=== PATIENT | male | born 1980 | race Caucasian/White ===

== ENCOUNTER 2016-07-17 11:26 | Emergency (ER) | payer OTHER ==
[~2016-07-17] VITALS: Wt 80.0 kg
[2016-07-17] MEDS ORDERED: FAMOTIDINE 20 MG TAB PO STA (12:20)
[2016-07-17] MEDS ORDERED: LIDOCAINE/MYLANTA 40 ML BTL PO STA (12:20)
[2016-07-17 12:56] LABS: BASOPHILS % 0.4 % (0.0-2.0); EOSINOPHILS # 0.2 10^3/ul (0.0-0.5); HEMOGLOBIN 15.4 g/dl (14.0-18.0); LYMPHOCYTES # 2.5 10^3/ul (0.8-2.9); LYMPHOCYTES % 26.6 % (15.0-51.0); MEAN CORPUSCULAR HEMOGLOBIN 24.8 pg (29.0-33.0); MEAN CORPUSCULAR HGB CONC 32.7 g/dl (32.0-37.0); MEAN CORPUSCULAR VOLUME 75.8 fl (82.0-101.0); MEAN PLATELET VOLUME 9.6 fl (7.4-10.4); MONOCYTE # 0.9 10^3/ul (0.3-0.9); NEUTROPHIL # 5.9 10^3/ul (1.6-7.5); PLATELET COUNT 222 10^3/UL (140-440); RED CELL DISTRIBUTION WIDTH 14.5 % (11.5-14.5); UNCORRECTED WBC 9.5 10^3/ul (4.8-10.8); WHITE BLOOD COUNT 9.5 10^3/ul (4.8-10.8)
--- NOTE | 2016-07-17 12:59 | RADRPT ---
PROCEDURE: US Abdomen (right upper quadrant). CLINICAL INDICATION: Abdominal pain TECHNIQUE: Multiple real-time longitudinal and transverse images of the right upper quadrant of th e abdomen were acquired utilizing a curved array transducer. Images were reviewed on a high-resoluti on PACS workstation. COMPARISON: None FINDINGS: The liver is enlarged (19.3 cm) and fatty infiltrated, without focal mass. Normal hepatopedal flow is present within the main portal vein. The gallbladder is normal. There is no pericholecystic flu id or gallbladder wall thickening or gallstones. No intrahepatic biliary dilatation is seen. The hill creas, abdominal aorta and common bile duct are obscured by bowel gas. No free fluid is identified. The right kidney measures 10.5 cm in length. No renal mass, calculus, hydronephrosis or perinephric fluid collection is identified. IMPRESSION: 1. Hepatic steatosis and mild hepatomegaly are noted. 2. No cholelithiasis or cholecystitis is seen. RPTAT: QQ .Landry Quezada MD, MD Date Time Electronically viewed and signed by .Landry Quezada MD, MD on 07/17/2016 12:59 .R/
[2016-07-17 13:03] LABS: CONDITION 1; LH ANALYZER COMMENTS 1
[2016-07-17 13:07] LABS: ALBUMIN 4.2 g/dl (3.3-4.9)
[2016-07-17 13:10] LABS: BILIRUBIN,INDIRECT 0.4 mg/dl (0-1.1); BILIRUBIN,TOTAL 0.4 mg/dl (0.2-1.3); CREATININE 0.97 mg/dl (0.61-1.24)
[2016-07-17 13:11] LABS: ALBUMIN/GLOBULIN RATIO 1.35; CALCIUM 9.4 mg/dl (8.4-10.2); TOTAL PROTEIN 7.3 g/dl (6.1-8.1)
--- NOTE | 2016-07-17 14:05 | RADRPT ---
PROCEDURE: XR Chest. CLINICAL INDICATION: chest pain, abdominal pain TECHNIQUE: Single frontal view of the chest was obtained COMPARISON: None FINDINGS: The heart and mediastinum are within normal limits. The lungs are clear. There is no pleural effusion or pneumothorax. RPTAT: AA IMPRESSION: No acute disease. .Tomas Aguayo MD, MD Date Time Electronically viewed and signed by .Tomas Aguayo MD, on 07/17/2016 14:04 .S/
[2016-07-17] MEDS ORDERED: ACET1TAB40 PO (14:16)
[2016-07-17] MEDS ORDERED: PANT40TA3 PO (14:16)
--- NOTE | 2016-07-17 14:19 | ERD ---
ER Documentation Chief Complaint Date/Time DATE: 07/17/16 TIME: 14:17 Chief Complaint ABDOMINAL PAIN SINCE THIS MORNING. NO N/V/D. HPI This 36-year-old male complains of epigastric abdominal pain for the last day. Denies any fevers, vomiting or nausea. Is not associated with food. It appears crampy without radiation. He denies diarrhea or urinary complaints. Denies any previous history of abdominal problems or gallstones ROS All systems reviewed and are negative except as per history of present illness. Medications Home Meds Active Scripts Acetaminophen with Codeine (Acetaminophen-Cod #3 Tablet) 1 Each Tablet, 1 TAB PO Q6H Y for PAIN, #10 TAB Prov:MERLINE ROGERS MD 07/17/16 Pantoprazole* (Protonix*) 40 Mg Tablet.dr, 40 MG PO DAILY, #20 TAB Prov:MERLINE ROGERS MD 07/17/16 Allergies Allergies: Coded Allergies: No Known Allergy (Unverified , 07/17/16) PMhx/Soc History of Surgery: No Anesthesia Reaction: No Hx Neurological Disorder: No Hx Respiratory Disorders: No Hx Cardiac Disorders: No Hx Psychiatric Problems: No Hx Miscellaneous Medical Probl: No Hx Alcohol Use: No Hx Substance Use: No Hx Tobacco Use: No Physical Exam Vitals Vital Signs Date Time Temp Pulse Resp B/P Pulse Ox O2 Delivery O2 Flow Rate FiO2 07/17/16 11:39 98.8 92 20 126/95 98 Physical Exam Const: [] Alert, [id number]. Head: Atraumatic Eyes: Normal Conjunctiva ENT: Normal External Ears, Nose and Mouth. Neck: Full range of motion..~ No meningismus. Resp: Clear to auscultation bilaterally Cardio: Regular rate and rhythm, no murmurs Abd: Soft, mild epigastric tenderness. No exquisite Blandon sign and no tenderness at McBurney's point and no rebound per, non distended. Normal bowel sounds Skin: No petechiae or rashes Back: No midline or flank tenderness Ext: No cyanosis, or edema Neur: Awake and alert Psych: Normal Mood and Affect Result Diagram: 07/17/16 1230 07/17/16 1230 Results 24 hrs Laboratory Tests Test 07/17/16 12:30 Alanine Aminotransferase (ALT/SGPT) 56IU/L Albumin 4.2g/dl Albumin/Globulin Ratio 1.35 Alkaline Phosphatase 63IU/L Anion Gap 19 Aspartate Amino Transf (AST/SGOT) 37IU/L Basophils # 0.010^3/ul Basophils % 0.4% Blood Morphology Comment Blood Urea Nitrogen 14mg/dl Calcium Level 9.4mg/dl Carbon Dioxide Level 25mmol/L Chloride Level 103mmol/L Creatinine 0.97mg/dl Direct Bilirubin 0.00mg/dl Eosinophils # 0.210^3/ul Eosinophils % 2.0% Globulin 3.10g/dl Glucose Level 115mg/dl Hematocrit 47.0% Hemoglobin 15.4g/dl Indirect Bilirubin 0.4mg/dl Lipase 187U/L Lymphocytes # 2.510^3/ul Lymphocytes % 26.6% Mean Corpuscular Hemoglobin 24.8pg Mean Corpuscular Hemoglobin Concent 32.7g/dl Mean Corpuscular Volume 75.8fl Mean Platelet Volume 9.6fl Monocytes # 0.910^3/ul Monocytes % 9.0% Neutrophils # 5.910^3/ul Neutrophils % 62.0% Nucleated Red Blood Cells # 0.010^3/ul Nucleated Red Blood Cells % 0.0/100WBC Platelet Count 41757^3/UL Potassium Level 4.0mmol/L Red Blood Count 6.2010^6/ul Red Cell Distribution Width 14.5% Sodium Level 143mmol/L Total Bilirubin 0.4mg/dl Total Protein 7.3g/dl White Blood Count 9.510^3/ul Current Medications Medications (Trade) Dose Ordered Sig/Eulogio Route PRN Reason Start Time Stop Time Status Last Admin Dose Admin Famotidine (Pepcid) 20 mg ONCE STAT PO 07/17/16 12:20 07/17/16 12:22 DC 07/17/16 13:07 Miscellaneous Medication (Gi Cocktail (2)) 40 ml ONCE STAT PO 07/17/16 12:20 07/17/16 12:22 DC 07/17/16 13:08 Procedures/MDM Patient presents with epigastric pain of uncertain etiology. Is given Pepcid p.o. as well as GI cocktail. Right upper quadrant ultrasound shows fatty liver without gallstones or acute abnormalities. CBC, CMP and lipase are normal. Chest X-ray 1V Interpreted by me: Soft Tissue: No acute abnormalities Bones: No acute abnormalities Mediastinum/Cardiac Silhouette/Lungs: [No acute abnormalities]. Impression- normal 1 view chest x-ray Patient was stable throughout the course with minimal epigastric tenderness. Patient has epigastric pain of uncertain etiology. There is no evidence of hepatobiliary disease, signs or symptoms are not consistent with appendicitis, acute abdomen, obstruction, PE, pneumonia, acute coronary syndrome. Patient was treated with Protonix, Tylenol 3 and instructions to follow-up with primary doctor possibly GI for further evaluation. He should otherwise return for worsening pain, fevers, blood, new or worsening symptoms as directed after instructions Departure Diagnosis: Primary Impression: Abdominal pain Abdominal location: epigastric Qualified Code: R10.13 - Epigastric pain Condition: Stable Patient Instructions: Abdominal Pain, Gastritis (Adult) Additional Instructions: All exams normal today. May be gastritis and we will treat for this. Recheck for new or worsening symptoms or primary care doctor for further evaluation and treatment. MERLINE ROGERS MD Jul 17, 2016 14:19
== END 2016-07-17 14:29 | disposition home or self-care (01) ==
LOC: FTE 11:26
DX: R10.13 Epigastric pain (principal)
CPT/HCPCS: 36415; 71010; 76705; 80053; 83690; 85025; Z7502; Z7610

== ENCOUNTER 2016-08-07 16:49 | Emergency (ER) | payer OTHER ==
[~2016-08-07] VITALS: Wt 98.9 kg
[~2016-08-07 16:49] MED LIST: ACET1TAB40 PO; PANT40TA3 PO
[2016-08-07] MEDS ORDERED: PHEN177S43 MT (17:44)
[2016-08-07] MEDS ORDERED: GUAI120S26 PO (17:44)
[2016-08-07] MEDS ORDERED: IBUP-1542 PO (17:44)
--- NOTE | 2016-08-07 18:01 | ERD ---
ER Documentation Chief Complaint Date/Time DATE: 08/07/16 TIME: 17:59 Chief Complaint SORE THROAT FEVER AND COUGH FOR THE PAST 2 DAYS. WITH COLE. NO NEURO DEF HPI 36-year-old male with no significant past medical history presents to the ED complaining of sore throat, fever, dry cough, frontal headache for the last 2 days. States that the headache is nonradiating. States that he has been taking ibuprofen with relief of his pain. Patient states that his sons are also sick with similar symptoms. Denies any chest pain, shortness of breath, wheezing, abdominal pain, nausea, vomiting, neck stiffness, neck pain. ROS All systems reviewed and are negative except as per history of present illness. Medications Home Meds Active Scripts Ibuprofen* (Motrin*) 600 Mg Tab, 600 MG PO Q6, #30 TAB Prov:GREYSON WYATT PA-C 08/07/16 Phenol* (Chloraseptic* [place]) 177 Ml [place].pump, 2 SPRAY MT Q2H Y for SORE THROAT, #1 BOTTLE Prov:GREYSON WYATT PA-C 08/07/16 Ngrytfqtaew-Z-Bwgznbbaol Hb* (Guaifenesin* DM Syrup) 120 Ml Syrup, 10 ML PO Q4H Y for COUGH, #120 ML Prov:GREYSON WYATT PA-C 08/07/16 Acetaminophen with Codeine (Acetaminophen-Cod #3 Tablet) 1 Each Tablet, 1 TAB PO Q6H Y for PAIN, #10 TAB Prov:MERLINE ROGERS MD 07/17/16 Pantoprazole* (Protonix*) 40 Mg Tablet.dr, 40 MG PO DAILY, #20 TAB Prov:MERLINE ROGERS MD 07/17/16 Allergies Allergies: Coded Allergies: No Known Allergy (Unverified , 07/17/16) PMhx/Soc History of Surgery: No Anesthesia Reaction: No Hx Neurological Disorder: No Hx Respiratory Disorders: No Hx Cardiac Disorders: No Hx Psychiatric Problems: No Hx Miscellaneous Medical Probl: No Hx Alcohol Use: No Hx Substance Use: No Hx Tobacco Use: No Physical Exam Vitals Vital Signs Date Time Temp Pulse Resp B/P Pulse Ox O2 Delivery O2 Flow Rate FiO2 08/07/16 17:15 99.9 115 22 120/59 97 Physical Exam Const: Xxj-bdi-nykthaqus, well-nourished. In no acute distress. Head: Atraumatic, normocephalic Eyes: Normal Conjunctiva without injection. No purulent discharge. PERRLA. EOMI ENT: Normal external ear. Ear canal without erythema. Tympanic membrane pearly alejandre without effusion or bulging. Nasal canal clear with normal turbinates. Moist oropharynx without tonsillar exudates. Non-erythematous pharynx. Uvula midline. No drooling. No trismus. Neck: No cervical midline tenderness. Full range of motion. No meningismus. No cervical lymphadenopathy. No JVD. Resp: Clear to auscultation bilaterally. No wheezing, rhonchi, rales, or crackles. No accessory muscle use. No retractions. Cardio: Regular rate and rhythm. No murmurs, rubs or gallops. Abd: Soft, non tender, non distended. Normal bowel sounds. No palpable masses. No rebound tenderness. No guarding. Negative McBurney's Point. Negative Blandon's Sign. Skin: Normal skin turgor. No petechiae or rashes Back: No midline tenderness. No CVA tenderness. Ext: No cyanosis, or edema. Distal pulses intact bilaterally. Neur: Awake and alert. Normal gait. Normal coordination. Cranial Nerves II- VII intact. Normal finger to nose. Muscle strength 5/5. Sensation intact. Psych: Normal Mood and Affect Procedures/MDM This is a 36-year-old male with no significant past medical history presents to the ED complaining of headache, fever, cough, sore throat. Patient is afebrile and nontoxic-appearing. This patient presents to the ED with symptoms consistent with a viral acute upper respiratory infection. Patient is afebrile and has normal vital signs. Patient's physical exam include lungs which were clear to auscultation and a normal pulse oximetry. There is a low suspicion for pneumonia, pneumothorax, pulmonary embolism, epiglottitis, otitis media, otitis externa, viral/strep pharyngitis, sinusitis, peritonsillar abscess, mastoiditis, retropharyngeal abscess, meningitis, sepsis, acute abdomen or other emergent conditions. Fluids , rest, and symptomatic treatment are recommended for the management of patient' s symptoms. Discharge medications: Ibuprofen, Chloraseptic spray, Guaifenesin Patient was instructed to return to the ED for any new or worsening symptoms. They should otherwise follow up with the primary care provider within 1-2 days. The patient's questions were answered at the time of discharge. Patient understood and agreed with discharge management. Departure Diagnosis: Primary Impression: URI (upper respiratory infection) URI type: unspecified URI Qualified Code: J06.9 - Upper respiratory tract infection, unspecified type Condition: Stable Patient Instructions: Uri, Viral, No Abx (Adult) Referrals: [facility] YOU HAVE RECEIVED A MEDICAL SCREENING EXAM AND THE RESULTS INDICATE THAT YOU DO NOT HAVE A CONDITION THAT REQUIRES URGENT TREATMENT IN THE EMERGENCY DEPARTMENT. FURTHER EVALUATION AND TREATMENT OF YOUR CONDITION CAN WAIT UNTIL YOU ARE SEEN IN YOUR DOCTORS OFFICE WITHIN THE NEXT 1-2 DAYS. IT IS YOUR RESPONSIBILITY TO MAKE AN APPOINTMENT FOR FOLOW-UP CARE. IF YOU HAVE A PRIMARY DOCTOR --you should call your primary doctor and schedule an appointment IF YOU DO NOT HAVE A PRIMARY DOCTOR YOU CAN CALL OUR PHYSICIAN REFERRAL HOTLINE AT IF YOU CAN NOT AFFORD TO SEE A PHYSICIAN YOU CAN CHOSE FROM THE FOLLOWING [facility] [address] [facility]. [facility] [address] [facility] [facility] [address] [facility] [facility] [address] [facility] [facility] [address] [facility] [facility]. [address] [facility]. [facility] YOU HAVE RECEIVED A MEDICAL SCREENING EXAM AND THE RESULTS INDICATE THAT YOU DO NOT HAVE A CONDITION THAT REQUIRES URGENT TREATMENT IN THE EMERGENCY DEPARTMENT. FURTHER EVALUATION AND TREATMENT OF YOUR CONDITION CAN WAIT UNTIL YOU ARE SEEN IN YOUR DOCTORS OFFICE WITHIN THE NEXT 1-2 DAYS. IT IS YOUR RESPONSIBILITY TO MAKE AN APPOINTMENT FOR FOLOW-UP CARE. IF YOU HAVE A PRIMARY DOCTOR --you should call your primary doctor and schedule and appointment IF YOU DO NOT HAVE A PRIMARY DOCTOR YOU CAN CALL OUR PHYSICIAN REFERRAL HOTLINE AT . IF YOU CAN NOT AFFORD TO SEE A PHYSICIAN YOU CAN CHOSE FROM THE FOLLOWING [facility]: [facility] [address] [place] [address] [facility] [address] [place] [address] [facility] [address] [place] [address] [facility] URGENT CARE/SPECIALTIES Additional Instructions: Visite a [facility] yulissa kothari para un EXAMEN.Regrese a estas instalaciones si no se mejora megha esperbamos o megha le dijimos. GREYSON WYATT PA-C Aug 07, 2016 18:01
== END 2016-08-07 17:45 | disposition home or self-care (01) ==
LOC: E/R 16:49
DX: J06.9 Acute upper respiratory infection, unspecified (principal)
CPT/HCPCS: 99283

== ENCOUNTER 2016-08-20 05:25 | Emergency (ER) | payer OTHER ==
[~2016-08-20] VITALS: Ht 172.7 cm; Wt 96.0 kg
[~2016-08-20 05:25] MED LIST changes: +GUAI120S26 PO; +IBUP-1542 PO; +PHEN177S43 MT
[2016-08-20 05:26] VITALS: Ht 172.7 cm; Wt 96.0 kg
[2016-08-20] MEDS ORDERED: AMO500 PO (06:19)
[2016-08-20] MEDS ORDERED: IBUP-1542 PO (06:20)
--- NOTE | 2016-08-20 06:25 | ERD ---
ER Documentation Chief Complaint Date/Time DATE: 08/20/16 TIME: 06:22 Chief Complaint RT EAR PAIN SINCE 2 AM HPI Patient is a 36-year-old male who presents to the emergency department with right ear pain since 2 AM this morning. Patient states he woke up with severe throbbing pain. He states the pain is constant. Patient states current pain level is 6 out of 10. Patient denies any discharge or bleeding. Patient denies any fever, chills, chest pain, shortness of breath, abdominal pain, nausea, vomiting, diarrhea or loss of consciousness. Patient states he did not receive the flu vaccine this year. Patient states he did recently have a cold however his symptoms include rhinorrhea and cough have resolved. Patient denies any recent travel. No sick contacts. ROS All systems reviewed and are negative except as per history of present illness. Medications Home Meds Active Scripts Ibuprofen* (Motrin*) 600 Mg Tab, 600 MG PO Q6, #20 TAB Prov:DELBERT SHEPHERDC 08/20/16 Amoxicillin* (Amoxicillin*) 500 Mg Cap, 500 MG PO TID for 10 Days, CAP Prov:DELBERT SHEPHERDC 08/20/16 Ibuprofen* (Motrin*) 600 Mg Tab, 600 MG PO Q6, #30 TAB Prov:GREYSON WYATT PA-C 08/07/16 Phenol* (Chloraseptic* [place]) 177 Ml [place].pump, 2 SPRAY MT Q2H Y for SORE THROAT, #1 BOTTLE Prov:GREYSON WAYTT PA-C 08/07/16 Jbeapnazblq-H-Rimtrnugqu Hb* (Guaifenesin* DM Syrup) 120 Ml Syrup, 10 ML PO Q4H Y for COUGH, #120 ML Prov:GREYSON WYATT PA-C 08/07/16 Acetaminophen with Codeine (Acetaminophen-Cod #3 Tablet) 1 Each Tablet, 1 TAB PO Q6H Y for PAIN, #10 TAB Prov:MERLINE ROGERS MD 07/17/16 Pantoprazole* (Protonix*) 40 Mg Tablet.dr, 40 MG PO DAILY, #20 TAB Prov:MERLINE ROGERS MD 07/17/16 Allergies Allergies: Coded Allergies: No Known Allergy (Unverified , 07/17/16) PMhx/Soc Medical and Surgical Hx: pt denies Medical Hx, pt denies Surgical Hx History of Surgery: No Anesthesia Reaction: No Hx Neurological Disorder: No Hx Respiratory Disorders: No Hx Cardiac Disorders: No Hx Psychiatric Problems: No Hx Miscellaneous Medical Probl: No Hx Alcohol Use: No Hx Substance Use: No Hx Tobacco Use: No Smoking Status: Never smoker Physical Exam Vitals Vital Signs Date Time Temp Pulse Resp B/P Pulse Ox O2 Delivery O2 Flow Rate FiO2 08/20/16 05:26 95.6 73 16 157/98 98 Physical Exam GENERAL: Well-developed, well-nourished male. Appears in no acute distress. HEAD: Normocephalic, atraumatic. No deformities or ecchymosis. EYE: Pupils equal, round, and reactive to light. EOMs intact. No conjunctival erythema. No eye discharge. ENT: External ear without any masses or tenderness. Auditory canals clear bilaterally. TM visualized bilaterally, left TM appears non-erythematous, non- bulging. Right TM appears erythematous and slightly bulging. Nasal mucosa pink with no discharge. Oropharynx is pink without any tonsillar erythema or exudates. No uvula deviation. No kissing tonsils. NECK: Supple. No meningismus. Normal ROM of the neck. LUNG: Clear to auscultation bilaterally. No rhonchi, wheezing, rales or coarse breath sounds. HEART: Regular rate and rhythm. No murmurs, rubs or gallops. ABDOMEN: Soft, nontender, and nondistended. Positive bowel sounds in all four quadrants. No rebound tenderness, no guarding. (-) McBurney's point tenderness. No CVA tenderness. : deferred BACK: No midline tenderness. EXTREMITES: Equal pulses bilaterally. No peripheral clubbing, cyanosis or edema. No unilateral leg swelling. NEUROLOGIC: Alert and oriented to person, place and time. Moving all four extremities. 5/5 strength in all extremities. Normal speech. Steady gait. (-) Brudzinski sign- no flexion of the hips and knees noted with neck flexion. (-) Kernigs sign- patient able to extend knee to 180 degrees with hip flexion , no hamstring stiffness noted. SKIN: Normal color. Warm and dry. No rashes or lesions. Procedures/MDM MEDICAL DECISION MAKING: This is a 36-year-old male who presents with right ear pain 5 hours. Vital signs were reviewed. Patient was afebrile. Patient was not hypoxic. Ear exam erythema and bulging of right tympanic membrane. No active bleeding or discharge. Given these findings, the patients presentation is most consistent with acute otitis media.. I have a much lower clinical suspicion for otitis externa, tympanic membrane perforation, mastoiditis, otic barotrauma, TMJ dysfunction, strep pharyngitis, sinusitis, pneumonia, sepsis, meningitis. PRESCRIPTIONS: Amoxicillin, ibuprofen DISCHARGE: At this time, patient is stable for discharge and outpatient management. I have instructed the patient to follow-up with his/her primary care physician in 1-2 days. I have discussed with the patient the possibility of needing to see a specialist for further workup and diagnostic studies if the pain persists. I have instructed the patient to promptly return to the ER at any time for any new or worsening symptoms including increased pain, fever, swelling, discharge or hearing loss. The patient and/or family expressed understanding of and agreement with this plan. All questions were answered. Home care instructions were provided. Departure Diagnosis: Primary Impression: Acute otitis media Otitis media type: unspecified Laterality: unspecified laterality Qualified Code: H66.90 - Acute otitis media, unspecified laterality, unspecified otitis media type Condition: Stable Patient Instructions: Otitis Media, Abx Tx (Adult) Additional Instructions: Call your primary care doctor TOMORROW for an appointment during the next 1-2 days.See the doctor sooner or return here if your condition worsens before your appointment time. DELBERT SHEPHERD PA-C Aug 20, 2016 06:25
== END 2016-08-20 06:41 | disposition home or self-care (01) ==
LOC: FTE 05:25
DX: H66.91 Otitis media, unspecified, right ear (principal)
CPT/HCPCS: 99283

== ENCOUNTER 2018-08-25 09:09 | Emergency (ER) | payer OTHER ==
[~2018-08-25] VITALS: Ht 167.6 cm; Wt 103.4 kg
[~2018-08-25 09:09] MED LIST changes: +AMOX500C2 PO
[2018-08-25 09:15] VITALS: BP 139/90; PULSE 80; RESP 20; Ht 167.6 cm; Wt 103.4 kg
[2018-08-25] MEDS ORDERED: KETOROLAC 60 MG INJ IM STA (10:12)
[2018-08-25] MEDS ORDERED: IBUP-1542 PO (10:25)
[2018-08-25] MEDS ORDERED: CYCL10TA7 PO (10:25)
--- NOTE | 2018-08-25 11:24 | ERD ---
ER Documentation Chief Complaint Chief Complaint Complains of back pain x 3 days HPI 38-year-old male patient with no significant past medical history presents to ED complaining of back pain that started about 5 days ago. 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 States that he feels like he is using good body mechanics. Reports he has been taking Advil for his pain. Denies any nausea, vomiting, chest pain, shortness of breath, saddle anesthesia, urine or bowel incontinence, stiffness, fever. Denies any direct injuries or trauma. ROS All systems reviewed and are negative except as per history of present illness. Medications Home Meds Active Scripts Cyclobenzaprine Hcl* (Cyclobenzaprine Hcl*) 10 Mg Tablet, 10 MG PO TID, #15 TAB Prov:GREYSON WYATT PA-C 08/25/18 Ibuprofen* (Motrin*) 600 Mg Tab, 600 MG PO Q6, #30 TAB Prov:GREYSON WYATTC 08/25/18 Ibuprofen* (Motrin*) 600 Mg Tab, 600 MG PO Q6, #20 TAB Prov:DELBERT SHEPHERD PA-C 08/20/16 Amoxicillin* (Amoxicillin*) 500 Mg Cap, 500 MG PO TID for 10 Days, CAP Prov:DELBERT SHEPHERD PA-C 08/20/16 Ibuprofen* (Motrin*) 600 Mg Tab, 600 MG PO Q6, #30 TAB Prov:GREYSON WYATT PA-C 08/07/16 Phenol* (Chloraseptic* Rampart) 177 Ml Rampart.pump, 2 SPRAY MT Q2H PRN for SORE THROAT, #1 BOTTLE Prov:GERYSON WYATT PA-C 08/07/16 Eclzqneqrmc-C-Agcffydwvf Hb* (Guaifenesin* DM Syrup) 120 Ml Syrup, 10 ML PO Q4H PRN for COUGH, #120 ML Prov:GREYSON WYATT PA-C 08/07/16 Acetaminophen with Codeine (Acetaminophen-Cod #3 Tablet) 1 Each Tablet, 1 TAB PO Q6H PRN for PAIN, #10 TAB Prov:MERLINE ROGERS MD 07/17/16 Pantoprazole* (Protonix*) 40 Mg Tablet.dr, 40 MG PO DAILY, #20 TAB Prov:MERLINE ROGERS MD 07/17/16 Allergies Allergies: Coded Allergies: No Known Allergy (Unverified , 07/17/16) PMhx/Soc History of Surgery: No Anesthesia Reaction: No Hx Neurological Disorder: No Hx Respiratory Disorders: No Hx Cardiac Disorders: No Hx Psychiatric Problems: No Hx Miscellaneous Medical Probl: No Hx Alcohol Use: No Hx Substance Use: No Hx Tobacco Use: No Physical Exam Vitals Vital Signs Date Temp Pulse Resp B/P (MAP) Pulse Ox O2 O2 Flow FiO2 Time Delivery Rate 08/25/18 97.3 80 20 139/90 97 09:15 (106) Physical Exam Const: Qfb-yzx-gfbzplzgz, well-nourished. In no acute distress. Head: Atraumatic, normocephalic Eyes: Normal Conjunctiva without injection. No purulent discharge. ENT: Normal external ear, nose. Moist oropharynx without tonsillar exudates. Non-erythematous pharynx. Uvula midline. No drooling. No trismus. Neck: No cervical midline tenderness. Full range of motion. No meningismus. No cervical lymphadenopathy. No JVD. Resp: Clear to auscultation bilaterally. No wheezing, rhonchi, rales, or crackle s. No accessory muscle use. No retractions. Cardio: Regular rate and rhythm. No murmurs, rubs or gallops. Abd: Soft, nontender, non distended. Normal bowel sounds. No palpable masses. No rebound tenderness. No guarding. Negative McBurney's point. Negative psoas sign. Negative obturator sign. Skin: No petechiae or rashes Back: No midline tenderness. No CVA tenderness. Ext: No cyanosis, or edema. Neur: Awake and alert. Normal gait. Normal coordination. Psych: Normal Mood and Affect Results 24 hrs Current Medications Medications Dose Sig/Eulogio Start Time Status Last (Trade) Ordered Route PRN Stop Time Admin Dose Reason Admin Ketorolac 60 mg ONCE STAT 08/25/18 DC 08/25/18 Tromethamine IM 10:12 10:29 (Toradol) 08/25/18 10:16 Procedures/MDM 38-year-old male patient with no significant past medical history presents to ED complaining of back pain that started about 5 days ago. Patient is afebrile and nontoxic-appearing. Patient's blood pressure is 139/90. Blood Pressure Assessment: Patient's blood pressure was elevated (>120/80) but appears stable without evidence of hypertension emergency or urgency. The patient was counseled about the risks of hypertension and urged to pursue outpatient monitoring and therapy within a week with their primary care physician. Given Toradol 60 mg IM here in the ED. Patient reports that his pain feels better. Patient symptoms are likely musculoskeletal. Proper body mechanics discussed with patient. Patient is ambulating here in the ED without difficulty. Denies saddle anesthesia, numbness or tingling, urine or bowel incontinence, weakness. Low suspicion for cauda equina syndrome, cord compression, nephrolithiasis, aortic aneurysm, aortic dissection, epidural abscess, spinal hematoma, malignancy, pyelonephritis, or other emergent conditions. Diagnosis: Back Pain Discharge medications: Ibuprofen, Flexeril Follow up with primary care physician in 1-2 days. Instructed patient to return to the ED sooner for any worsening symptoms. Patient's questions were answered. Patient is hemodynamically stable. Patient understood and agreed with discharge plan. Patient discharged stable. Disclaimer: Inadvertent spelling and grammatical errors are likely due to EHR/dictation software use and do not reflect on the overall quality of patient care. Also, please note that the electronic time recorded on this note does not necessarily reflect the actual time of the patient encounter. Departure Diagnosis: Primary Impression: Back pain Back pain location: back pain in unspecified location Chronicity: unspecified Back pain laterality: unspecified Qualified Codes: M54.9 - Dorsalgia, unspecified Condition: Stable Patient Instructions: Back Basics: A Healthy Spine, Back Care Tips, Back Sprain/Strain Referrals: [facility] YOU HAVE RECEIVED A MEDICAL SCREENING EXAM AND THE RESULTS INDICATE THAT YOU DO NOT HAVE A CONDITION THAT REQUIRES URGENT TREATMENT IN THE EMERGENCY DEPARTMENT. FURTHER EVALUATION AND TREATMENT OF YOUR CONDITION CAN WAIT UNTIL YOU ARE SEEN IN YOUR DOCTORS OFFICE WITHIN THE NEXT 1-2 DAYS. IT IS YOUR RESPONSIBILITY TO MAKE AN APPOINTMENT FOR FOLOW-UP CARE. IF YOU HAVE A PRIMARY DOCTOR --you should call your primary doctor and schedule an appointment IF YOU DO NOT HAVE A PRIMARY DOCTOR YOU CAN CALL OUR PHYSICIAN REFERRAL HOTLINE AT IF YOU CAN NOT AFFORD TO SEE A PHYSICIAN YOU CAN CHOSE FROM THE FOLLOWING [facility] [address] [facility] [address] [facility] [address] [facility] [address] [facility] [address] [facility]. [facility]. [address] [facility]. [facility] YOU HAVE RECEIVED A MEDICAL SCREENING EXAM AND THE RESULTS INDICATE THAT YOU DO NOT HAVE A CONDITION THAT REQUIRES URGENT TREATMENT IN THE EMERGENCY DEPARTMENT. FURTHER EVALUATION AND TREATMENT OF YOUR CONDITION CAN WAIT UNTIL YOU ARE SEEN IN YOUR DOCTORS OFFICE WITHIN THE NEXT 1-2 DAYS. IT IS YOUR RESPONSIBILITY TO MAKE AN APPOINTMENT FOR FOLOW-UP CARE. IF YOU HAVE A PRIMARY DOCTOR --you should call your primary doctor and schedule and appointment IF YOU DO NOT HAVE A PRIMARY DOCTOR YOU CAN CALL OUR PHYSICIAN REFERRAL HOTLINE AT . IF YOU CAN NOT AFFORD TO SEE A PHYSICIAN YOU CAN CHOSE FROM THE FOLLOWING [facility] INSTITUTIONS: [facility] [address] [place] [address] [facility] [address] [place] [address] [facility] [address] [place] [address] [facility] URGENT CARE/SPECIALTIES Additional Instructions: Call your primary care doctor TOMORROW for an appointment during the next 2-3 days. See the doctor sooner or return here if your condition worsens before your appointment time. You have been given a medicine which may cause drowsiness.DO NOT DRIVE OR OPERATE DANGEROUS MACHINERY while taking this medicine! GREYSON WYATT PA-C Aug 25, 2018 11:24
== END 2018-08-25 11:07 | disposition home or self-care (01) ==
LOC: FTE 09:09
DX: M54.9 Dorsalgia, unspecified (principal)
CPT/HCPCS: 96372; J1885; Z7502